=== PATIENT | male | born 1985 | race Caucasian/White ===

== ENCOUNTER → 2017-02-15 | Outpatient (CLI) | payer OTHER ==
[~2017-02-15] MED LIST: DITROPAN XL5 MG PO; FLOMAX0.4 MG PO; HYDROCODONE BIT1 T11 PO; IBUPROFEN600 MG PO; MOTRIN800 MG PO; Motrin,Rufen800 MG PO; NKHM PO; PERCOCET 325 MG1 TA5 PO; PERCOCET 325 MG1 TA7 PO; PYRIDIUM200 M1 PO; VICODIN 5-3001 EACH PO; ZOFRAN ODT4 MG SL
== END | disposition home or self-care (01) ==
LOC: RAD 10:32
DX: N20.1 Calculus of ureter (principal)

== ENCOUNTER → 2017-02-16 | Day surgery (SDC) | payer OTHER ==
[2017-02-15 13:43] VITALS: BP 113/67
[~2017-02-16] VITALS: Ht 170.1 cm; Wt 83.9 kg
--- NOTE | ~2017-02-16 | O ---
[place], [place] OPERATIVE NOTE NAME: [id number] UNIT #: [id number] ROOM: DOCTOR: DAYO BARTHOLOMEW MD BIRTHDATE: [birth year] DOS: 02/16/2017 PREOPERATIVE DIAGNOSIS: Status post right distal ureteral calculus treated with URS and holmium laser lithotripsy. POSTOPERATIVE DIAGNOSIS: Status post right distal ureteral calculus treated with URS and holmium laser lithotripsy. PROCEDURE: Cystoscopy and removal of the stent. FINDINGS: The preop KUB showed no evidence of a residual stone with the stent in the proper position in the right collecting system. DESCRIPTION OF PROCEDURE: After obtaining satisfactory sedation, the patient was placed in lithotomy position. Genitalia was prepped and draped in sterile manner. A 21 ACMI scope was placed into the bladder without difficulty. The right ureteral stent was seen coming out of the right ureteral orifice. It was grasped with the grasper and removed without difficulty under fluoroscopic control. The patient tolerated the procedure well. He was then recovered from sedation, transferred to recovery room in satisfactory condition. DAYO BARTHOLOMEW MD CM:OPRECORD:OPERATIVE NOTE 0850 DAYO BARTHOLOMEW MD 02/16/17 0923 interface
[2017-02-16 08:00] VITALS: BP 134/78
[2017-02-16 08:45] VITALS: BP 87/43
[2017-02-16 09:00] VITALS: BP 83/42
[2017-02-16 09:18] VITALS: BP 93/52
== END | disposition home or self-care (01) ==
LOC: SDC 02-15 13:15
DX: Z46.6 Encounter for fitting and adjustment of urinary device (principal); Z83.3 Family history of diabetes mellitus

== ENCOUNTER 2019-04-17 08:44 | Emergency (ER) | payer OTHER ==
[~2019-04-17] VITALS: Ht 170.1 cm; Wt 82.6 kg
--- NOTE | ~2019-04-17 | EKG ---
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
[2019-04-17 09:04] LABS: BASO % 0.3 % (0.0-1.0); EOS # 0.1 10*3/uL (0.0-0.4); EOS % 2.4 % (1.0-4.0); HEMATOCRIT 43.4 % (42.0-52.0); LYMPH # 1.7 10*3/uL (1.3-4.4); LYMPH % 28.7 % (27.0-41.0); MEAN CELL VOLUME 95.4 fl (80.0-94.0); MEAN CORPUSCULAR HGB CONC 34.6 g/dl (33.0-37.0); MEAN PLATELET VOLUME 10.6 fl (9.6-12.3); MONO # 0.5 10*3/uL (0.1-1.0); MONO % 9.2 % (3.0-9.0); NEUT # 3.4 10*3/uL (2.3-7.9); NEUT % 59.2 % (47.0-73.0); PLATELET COUNT AUTOMATED 185 10*3/uL (130-400); RED BLOOD COUNT 4.55 10*6/uL (4.50-5.90); RED CELL DISTRI WIDTH 12.1 % (0-14.5); WHITE BLOOD COUNT 5.8 10*3/uL (4.8-10.8)
[2019-04-17 09:23] LABS: ALBUMIN 3.7 gm/dl (3.1-4.5); ALKALINE PHOSPHATASE 87 U/L (45-117); BUN 14 mg/dl (7-24); CHLORIDE 107 mmol/L (98-107); CREATININE 1.14 mg/dL (0.70-1.30); LIPASE 144 U/L (73-393); POTASSIUM 4.1 mmol/L (3.5-5.1); SGOT/AST 23 IU/L (3-35); SGPT/ALT 33 U/L (12-78); SODIUM 140 mmol/L (136-145)
== END 2019-04-17 16:17 | disposition home or self-care (01) ==
LOC: ED 08:44
PROVIDERS: Emergency Medicine
DX: R10.9 Unspecified abdominal pain (principal); R11.2 Nausea with vomiting, unspecified; R42 Dizziness and giddiness; M54.5 Low back pain; R20.2 Paresthesia of skin; Z87.442 Personal history of urinary calculi; Z88.6 Allergy status to analgesic agent